=== PATIENT | female | born 1990 | race Caucasian/White ===

== ENCOUNTER 2021-04-28 09:03 | Outpatient (REF) | payer BC, SELFPAY ==
--- NOTE | ~2021-04-28 | XR_ITS ---
EXAMINATION: XR CHEST CLINICAL INFORMATION: Shortness of breath COMPARISON: None TECHNIQUE: 2 views of the chest were obtained. FINDINGS: No significant abnormality is noted involving the heart, lungs, mediastinum, bony thorax or soft tissues. XR/XR chest 2V IMPRESSION: Unremarkable chest examination.
[2021-04-28 11:39] LABS: Anion Gap 12 (12-20); Blood Urea Nitrogen 5 mg/dL (9-16); Calcium 9.7 mg/dL (8.4-10.2); Carbon Dioxide 27 mmol/L (22-29); Chloride 104 mmol/L (96-108); D Dimer High Sensitivity 167 NG/ML; Estimated Glomerular Filt Rate > 60; Glucose Random 119 mg/dL (60-115); Potassium 3.8 mmol/L (3.3-5.1); Sodium 139 mmol/L (135-145)
== END 2021-04-28 09:04 | disposition home or self-care (01) ==
LOC: HO.HMGCLDS 09:03
PROVIDERS: PCP Nurse Practitioner Family; Visit Provider Nurse Practitioner Family
DX: R06.02 Shortness of breath (principal); U09.9 Post COVID-19 condition, unspecified
CPT/HCPCS: 36415; 71046; 80048; 85379

== ENCOUNTER 2022-03-05 08:03 | Outpatient (REF) | payer BC, SELFPAY ==
[2022-03-05 11:52] LABS: Syphilis Screen Nonreactive (Nonreactive)
[2022-03-05 12:12] LABS: Alanine Aminotransferase 18 U/L (0-31); Albumin Level 4.4 g/dL (3.5-5.0); Alkaline Phosphatase 50 U/L (39-117); Anion Gap 13 (12-20); Aspartate Amino Transferase 15 U/L (5-31); Blood Urea Nitrogen 14 mg/dL (9-16); Calcium 9.2 mg/dL (8.4-10.2); Carbon Dioxide 24 mmol/L (22-29); Chloride 108 mmol/L (96-108); Cholesterol 174 mg/dL; Estimated Glomerular Filt Rate > 60; Glucose Fasting 101 mg/dL (60-99); HDL Cholesterol 42 mg/dL; LDL Cholesterol Calculated 117 mg/dl; Potassium 4.5 mmol/L (3.3-5.1); Sodium 140 mmol/L (135-145); TSH reflex Free T4 2.01 uIU/mL (0.32-4.0); Total Protein 6.6 g/dL (6.5-8.0); Triglycerides 76 mg/dL
[2022-03-05 14:07] LABS: Appearance Urine Turbid; Color Urine Yellow; Glucose Urine UA Negative (Negative); Leukocyte Esterase Urine Trace (Negative); Nitrite Urine Negative (Negative); Specific Gravity - Urine 1.025 (1.005-1.025); UMIC TRIGGER UACC YES; Urine Blood Large (3+) (Negative); Urine Ketones 40 mg/dL (Negative); Urine Protein Negative (Neg-Trace)
[2022-03-05 14:12] LABS: Bacteria Urine None Seen (None Seen); Hyaline Casts Urine 0-2 /LPF (0-2); RBC Urine >20 /HPF (0-2); Squamous Epithelial Cell Urine 0-2 /HPF (0-2); WBC Urine 0-5 /HPF (0-5)
[2022-03-06 09:08] LABS: HIV AB/AG Nonreactive (Nonreactive); Hepatitis B Surface Antigen Negative (Negative); ~HepC Num1 0.05 S/CO (0.00-0.79); ~Hepatitis C Antibody Nonreactive (Nonreactive)
== END 2022-03-05 08:04 | disposition home or self-care (01) ==
LOC: HO.HMGCLDS 08:03
PROVIDERS: Absent Provider Obstetrics & Gynecology; PCP Nurse Practitioner Family; Visit Provider Nurse Practitioner Family
DX: Z00.00 Encounter for general adult medical examination without abnormal findings (principal); Z11.3 Encounter for screening for infections with a predominantly sexual mode of transmission; Z11.4 Encounter for screening for human immunodeficiency virus [HIV]
CPT/HCPCS: 36415; 80053; 80061; 81001; 81003; 84443; 86780; 86803; 87340; 87389

== ENCOUNTER → 2022-05-15 08:00 | Outpatient (REF) | payer BC, SELFPAY ==
--- NOTE | 2022-05-15 08:02 | CA_ITS ---
Transthoracic Echocardiogram Patient (Last, First, Middle): Nery Hernandez, Gender: Female Date of : 1990 Age: 31 Procedure Date: 05/15/2022 Procedure Type: Transthoracic Echocardiogram Location: OP Height: 167.64 cm Weight: 108.86 kg BSA: 2.16 m2 Heart Rate: 65 bpm BP: 122 / 70 mmHg Quartz Orientator: SB Referring MD: Elvis Addison [facility] Hearing Examiner: Saw Combs MD Symptoms: R01.1 - Cardiac murmur, unspecified Study Quality: Adequate ECG Rhythm: Sinus Conclusions: - Essentially normal study Findings Left Ventricle Normal left ventricular size, thickness, and systolic function. The visually estimated ejection fraction is between 60-65%. Spectral Doppler is indicative of a normal filling pattern. Peak GLS is 17.6%, within normal limits Right Ventricle Normal right ventricular cavity size and systolic function. Atria Both atria are normal in size. There is no evidence of interatrial shunt. Aortic Valve Normal aortic valve structure and function. There is no aortic valve stenosis. There is no aortic valve regurgitation. Mitral Valve There is mild anterior and posterior mitral leaflet thickening. There is trace mitral valve regurgitation. There is no mitral valve stenosis. Pulmonic Valve The pulmonic valve is likely normal. Tricuspid Valve Normal tricuspid valve structure. There is trace tricuspid valve regurgitation. The right ventricular systolic pressure is normal. The right ventricular systolic pressure is 21 mmHg. Normal right atrial pressure. There is no evidence of pulmonary hypertension. Great Vessels All visible segments of the aorta are normal in size. The pulmonary artery was not well visualized. Venous The inferior vena cava is normal in size and collapses greater than 50% with inspiration. Pericardium/Pleural There is no evidence of pericardial effusion. Prior Study Comparison No prior study available for comparison. Measurements 2D Linear Measurements IVSd: 0.72 0.6-0.9/0.6-1.0 cm LVIDd: 4.07 3.9-5.3/4.2-5.9 cm LVIDd Index: 1.88 2.4-3.2/2.2-3.1 cm/m2 LVIDs: 3.01 2.0-3.6 cm LVPWd: 0.77 0.7-1.1 cm LA Diam: 3.30 2.7-3.8/3.0-4.0 cm LAIDs Index: 1.53 1.5-2.3 cm/m2 LV Mass: 108.35 67-162/88-224 g LV Mass Index: 50.16 43-95/49-115 g/m2 LVOT Diam: 2.00 3.0+(-)1.3 cm 2D Systolic Function EF 4C: 62.10 >55% EF 2C: 58.90 >55% EF BiP: 59.80 >55% Mitral Valve MV Pk E: 0.89 MV PK A: 0.51 MV Decel Time: 154.00 E/A: 1.70 E'Lateral: 14.30 E'Medial: 11.00 E/E' Med: 8.10 E/E' Lat: 6.20 PHT: 45.00 MVA PHT: 4.89 Decel [place]: 5.77 Aortic Valve AoV Pk Juanjose: 1.39 AoV Pk Grad: 8.00 TESSA: 2.59 LVOT LVOT Pk Juanjose: 1.10 LVOT Mn Juanjose: 0.79 LVOT VTI: 0.23 LVOT Pk Grad: 5.00 LVOT Mn Grad: 3.00 LVOT Diam: 2.00 LVOT Area: 3.14 Diastolic Function MV Pk E: 0.89 MV Pk A: 0.51 E/A: 1.70 E'Medial: 11.00 E/E' Med: 8.10 E' Laterial: 14.30 E/E' Lat: 6.20 Right Ventricle TAPSE (mm): 17.10 TVS' Juanjose: 9.88 Tricuspid Valve TR Pk Juanjose: 1.83 TR Pk Grad: 13.00 RA Press: 8.00 RVSP: 21.00 Great Vessels Aorta Sinus of Valsalva: 2.90 2.0-3.5 cm Ao Asc: 2.90 2.1-3.4 cm Pulmonary Valve PV Pk Juanjose: 1.28 Peak PV Grad: 7.00 Updated in Other Vendor System with Status of Final Saw Combs MD electronically signed on 05/15/2022 2:35:53 PM with status of Final
== END ==
LOC: HO.CARD 08:00
PROVIDERS: Visit Provider Nurse Practitioner Family
DX: R01.1 Cardiac murmur, unspecified (principal)
CPT/HCPCS: 93306; 93356

== ENCOUNTER 2023-08-16 15:52 | Outpatient (AMB) | payer BC, SELFPAY ==
--- NOTE | 2023-08-16 16:05 | A.OFFPC_ITS ---
Vital Signs 08/16/23 16:08 Height 5 ft 6 in Weight 238 lb BMI 38.4 BP 120/80 Blood Pressure Location Rt brachial Position Sitting Pulse 58 Pulse Source Pulse Oximeter Pulse Oximetry (%) 98 Oxygen Delivery Method Room Air Intake Visit Reasons: PE Intake Note: Patient here for physical exam. last Pap: 2022 due back in 3 years. Allergies Sulfa (Sulfonamide Antibiotics) Allergy (Unknown, Verified 08/16/23 16:09) hives amoxicillin Adverse Reaction (Unknown, Verified 08/16/23 16:09) unknown Sulfa Allergy (Unknown, Uncoded 08/16/23 16:09) hives Medication List - Last Reconciled 08/16/23 by SANYA Raza No Known Home Meds Tobacco use date assessed: 08/16/23 Dental Screening Dental Screen Date: 08/16/23 Did you have a dental visit in the last 12 months?: Yes Did you have a dental problem in the last 6 months where you did not have access to dental care?: No Was dental information given to patient?: Patient has dentist HPI PE HPI Details Pt is here for a PE. Will order labs. Has a siebel administrator. [facility] Social History Housing: Apartment Patient Tobacco Use Status: Never used Tobacco e-Cigarette/Vaping Use: Never Used Second Hand Smoke Exposure: No service: No Current occupational status: employed Current occupation: MEDICAL DEVICE ENGINEER in Addiction Medicine Current occupational exposures/hazards: No Cognitive needs: No Hearing needs: No Vision needs: No Questionnaire Thrive Questionnaire Date Thrive assessed: 08/12/22 AUDIT C Alcohol Use Questionnaire (AUDIT-C) 1. How often do you have a drink containing alcohol?: 2-4 times a month 2. How many drinks containing alcohol do you have on a typical day when you are drinking?: 1 or 2 3. How often do you have six or more drinks on one occasion?: Never Total Score: 2 Score Reviewed/Action Taken: No SLOANE-7 AMB Questionnaire SLOANE-7 Date SLOANE - 7 assessed: 08/12/22 Source: Developed by Drs. Lang Arias, Mayra Palma, Clark Kerr and colleagues, with an educational mando from [employer]. Review of Systems Const Denies chills and Denies fever(s) Eyes Denies blurry vision ENT Denies vertigo, Denies dizziness and Denies sore throat Card Denies chest pain at rest, Denies chest pain with activity, Denies diaphoresis, Denies dyspnea and Denies dyspnea on exertion Resp Denies cough, Denies dyspnea, Denies dyspnea on exertion and Denies wheezing GI Denies abdominal pain, Denies melena, Denies hematochezia, Denies constipation, Denies diarrhea and Denies loose stools Denies hematuria Musc Denies numbness and Denies tingling Skin/Breast Denies lesions Neuro Denies vertigo, Denies dizziness, Denies numbness and Denies tingling Psych Denies anxiety, Denies depression, Denies homicidal ideation, Denies suicidal ideation and Denies other (substance abuse) Aller/Immun Denies wheezing Physical exam (Primary Care) Vital Signs: Last Vital Signs Pulse 58 08/16/23 16:08 BP 120/80 08/16/23 16:08 Pulse Ox 98 08/16/23 16:08 Oxygen Delivery Method Room Air 08/16/23 16:08 BMI result Body Mass Index 38.4 Tobacco/Smoking Status: Tobacco use Status Tobacco use date assessed 08/16/23 08/16/23 16:12 Patient Tobacco Use Status Never used Tobacco 08/16/23 16:06 e-Cigarette/Vaping Use Never Used 08/16/23 16:06 Thrive Assessment: Date of Thrive Assessment Date Thrive assessed 08/12/22 08/16/23 16:06 Const General: cooperative Nutritional Appearance: obese Orientation/consciousness: patient oriented x3 HENMT Head: Yes normal to inspection, Yes normocephalic and Yes atraumatic Ears: TM's normal bilaterally Eyes General: appearance normal, both eyes and all related structures Alignment and Position: alignment normal and position normal Neck Neck: Yes normal visual inspection and Yes no lymphadenopathy Thyroid: Thyroid normal Resp Effort & Inspection: normal respiratory effort Auscultation: clear to auscultation bilaterally Cardio Rate: regular rate Rhythm: regular rhythm Heart sounds: S1 normal heart sound present, S2 normal heart sound present and Murmur heart sound present systolic GI Palpation (GI): Soft to palpation and nontender Auscultation: normal bowel sounds Skin Rashes: no rashes Neuro General: patient oriented x3, moves all extremities, no focal motor deficits and deep tendon reflexes 2+ bilaterally Romberg Test: Negative Psych Appearance: grossly normal Mental Status: mental status grossly normal Speech and movement: Normal speech and movement present Affect: normal affect Attitude: cooperative Thought process: Normal thought process present Thought content: Normal thought content present Insight: Good insight present (Psych) Judgement: Good judgement present (Psych) Assessment and Plan Assessment & Plan (1) Physical exam: Code(s): Z00.00 - Encounter for general adult medical examination without abnormal findings Plan: Labs ordered Plan The patient agreed to the use of a medical collections specialist for this encounter. Scribed for SANYA Garduno by Lainey Whitehead medical collections specialist, on 08/16/2023 at 16:15 EST. Orders: Orders Comprehensive [place]. Panel Fast Today Z00.00 - Encounter for general adult medical examination without abnormal findings TSH reflex Free T4 Today Z00.00 - Encounter for general adult medical ex amination without abnormal findings Complete Blood Count Auto Diff Today Z00.00 - Encounter for general adult medical examination without abnormal findings UA CC w/rflx Micro + Cult Today Z00.00 - Encounter for general adult medical examination without abnormal findings Lipid Panel Today Z00.00 - Encounter for general adult medical examination without abnormal findings Coding Level of Care Code Est Pt Prev Care 18-39y([id number]) Diagnoses Physical exam Z00.00
[2023-08-16 16:08] VITALS: BP 120/80; PULSE 58; O2SAT 98; BMI 38.4
== END 2023-08-16 16:25 | disposition home or self-care (01) ==
LOC: HO.HMGC 15:52
PROVIDERS: PCP Nurse Practitioner Family; Visit Provider Nurse Practitioner Family
DX: Z00.00 Encounter for general adult medical examination without abnormal findings (principal)
CPT/HCPCS: 99395

== ENCOUNTER 2024-11-01 15:33 | Outpatient (AMB) | payer OTHER, SELFPAY ==
--- OUTSIDE RECORDS SUMMARY | 2023-07-30 07:00 | XMS_ITS ---
Author Organization [facility] [address] Address [address] [place] [address] Care Team Providers Care Batter Mixer Name Role Phone EDDIE CRAIG Unavailable CHAD TERRY Unavailable [phone] Encounters Encounter Location Date Provider Diagnosis [facility] [address] [place] [address] 07/30/2023 CHAD TERRY Plan Of Treatment No Information Progress Notes * Christelle HERNANDEZOB:1990 (34 yo F)Acc No.[id number]:07/30/2023 Patient: Carmela CASEY Nery Provider: Samuel CALI PA-C :1990 A ge:33 Y S ex:Female Date:07/30/2023 Address:[address] [place], [place] [id number] Subjective: * Chief Complaints: * * Medical History: Objective: * Vitals: Assessment: Plan: * Treatment: * Images: Billing Information: * Visit Code: * Procedure Codes: * Electronic signature of CHARLENE TERRY PA-C on 11/01/2024 at 03:37 PM EDT Sign off status: Pending * Provider: Samuel CALI PA-C Date: 07/30/2023 Generated for Abiola rosales/Ita/eTransmitting on: 0 11/01/2024 03:37 PM EDT
--- OUTSIDE RECORDS SUMMARY | 2024-11-01 15:37 | XMS_ITS | Clinical Summary ---
Author Organization [facility] Address [address] [place] [address] Care Team Providers Care Electrical Equipment Technician Name Role Phone System, Provider Not In Primary Care Provider Un available Allergies Active Allergy Reactions Criticality Noted Date Comments Sulfa Antibiotics Hives Medium 02/19/2017 Social History Tobacco Use Types Packs/Day Years Used Date Smoking Tobacco: Never Assessed Comments Unknown Sex and Gender Information Value Date Recorded Sex Assigned at Not on file Legal Sex Female 4:13 PM EDT Gender Identity Not on file Sexual Orientation Not on file Plan of Treatment Health Maintenance Due Date Last Done Comments Hepatitis C Virus Screening 1990 HIV Screening 2001 DTaP/Tdap/Td Vaccines (1 - Tdap) 07/09/2007 Hepatitis B Vaccines (1 of 3 - 19+ 3-dose series) 07/09/2007 Pap Smear (Ages 21-65) 2009 COVID-19 Vaccine ( - 2023-2 5 season) 2023 Influenza Vaccine 11/24/2024 HPV Vaccines Aged Out No longer eligi ble based on patient's age to complete this topic Pneumococcal Vaccine: Pediat blake (0-5 Years) and At-Risk Patients (6 to 49 Years) Aged Out No longer eligible b ased on patient's age to complete this topic Insurance [facility] [employer] [place] [address] Care Teams Electrical Equipment Technician Relationship Specialty Start Date End Date System, Provider Not In PCP - General 02/18/17
--- OUTSIDE RECORDS SUMMARY | 2024-11-01 15:38 | XMS_ITS | Encounter Summary ---
Author Organization [facility] Address [address] [place] [address] Phone Care Team Providers Care Barrer And Tacker Name Role Phone Chrystal Scott DO Primary Care Provider [phone] Encounter Details Date Type Department Care Team (Late st Contact Info) Description 12/10/2016 Conversion Encounter [facility] [place] [address] [place] [address] Social History Tobacco Use Types Packs/Day Years Used Date Smoking Tobacco: Never Assessed Comments Unknown Sex and Gender Information Value Date Recorded Sex Assigned at Not on file Legal Sex Female 4:38 PM EDT Gender Identity Not on file Sexual Orientation Not on file documented as of this encounter Plan of Treatment Not on file documented as of this encounter Visit Diagnoses Not on filedocumented in this encounter Care Teams Barrer And Tacker Relationship Specialty Start Date End Date Chrystal Scott DO [address] [place] [address] PCP - General 12/04/16 10/27/22 documented as of this encounter
--- OUTSIDE RECORDS SUMMARY | 2024-11-01 15:38 | XMS_ITS | Patient Health Record ---
Author Organization [facility] Address [address] [place] [address] Care Team Providers Care Marketing Rotation Associate Name Role Phone Elvis Castro Primary Care Provider Unav Raine Gifford Unavailable [phone] Allergies Allergen (clinical drug ingredient) Drug/Non Drug Allergy documented on EMR Reaction Allergy Type Onset Date Status Substance with sulfonamide structure and antibacterial mechanism of action (substance) Sulfa Antibiotics rash/hives Drug Allergy Active Reason For Referral No Information Social History Tobacco Use: Social History Observation Description Date Details (start date - stop date) Never Smoker NA - NA Tobacco Use/Smoking Question Answer Notes Are you a: nonsmoker Additional Findings: Tobacco Non-User Current no n-smoker Alcohol Screen Question Answer Notes Did you have a drink containing alcohol in the p ast year? Yes Points 0 Interpretation Negative Tobacco use other than smoking: Question Answer Notes Are you an other tobacco user? No Plan Of Treatment No Information Insurance Providers Payer Name Payer Address Payer Phone Subscriber Number Group Number Insured Name Patient Relationship to Insured Coverage Start Date Coverage End Date [facility] [address] [place] [address] [id number] Nery Hernandez Self - patient is the insured Medical (General) History Medical History History ICD Code TMJ Obesity Surgical History Surgery Date(Month/Year)
[2024-11-01 15:40] VITALS: BP 114/78; PULSE 89; RESP 16; TEMP 36.8; O2SAT 99; BMI 43.3
--- NOTE | 2024-11-01 15:40 | A.OFFPC_ITS ---
Vital Signs 11/01/24 15:40 Height 5 ft 6 in Weight 268 lb BMI 43.3 BP 114/78 Blood Pressure Location Lt brachial Position Sitting Respiration 16 Pulse 89 Pulse Source Pulse Oximeter Temp 98.3 F Temp Source Oral Pulse Oximetry (%) 99 Oxygen Delivery Method Room Air Intake Visit Reasons: Annual PE Intake Note: pt is here for her PE Felt Hanger Required: No Allergies Sulfa (Sulfonamide Antibiotics) Allergy (Unknown, Verified 11/01/24 16:13) hives amoxicillin Adverse Reaction (Unknown, Verified 11/01/24 16:13) unknown Sulfa Allergy (Unknown, Uncoded 11/01/24 16:13) hives Medication List - Last Reconciled 11/01/24 by DAVID Raza-DHARMESH rivero.vits,terese,iou-zvcc-zllui tabs PO Tobacco use date assessed: 11/01/24 Dental Screening Dental Screen Date: 11/01/24 Did you have a dental visit in the last 12 months?: Yes Did you have a dental problem in the last 6 months where you did not have access to dental care?: No Was dental information given to patient?: Patient has dentist HPI Annual PE HPI Details History of Present Illness The patient is a 34-year-old female presenting for a physical examination following childbirth. She recently gave to twins in August, with one delivered vaginally and the other via emergency due to complications. The twins were premature and required a stay in the NICU, but they are now home and doing well. The patient is currently and has been advised by her supervisor carton and can supply to see a therapist due to the trauma associated with the childbirthing experience she had. She reports that she is still seeing a therapist and is doing quite well, denying any suicidal ideation or homicidal thoughts. The patient denies any chest pain, shortness of breath, abdominal pain, blood in stool, constipation, or diarrhea. Her supervisor carton and can supply has recommended that she remain out of work until December, which is agreed upon. The patient is morbidly obese, and there was a discussion about starting a GLP-1 agonist after she finishes . She denies any history of pancreatitis or thyroid issues. Health Maintenance Social History Review of Systems - Psychiatric: Denies suicidal ideation or homicidal thoughts. - Cardiovascular: Denies chest pain. - Respiratory: Denies shortness of breat h. - Gastrointestinal: Denies abdominal cindy n, blood in stool, constipation, or diarrhea. Physical Exam General: Cooperative, healthy appearing, comfortable, no acute distress and well developed, morbidly obese Orientation: Patient oriented x3 Limitations: No limitations Head: Normal to inspection Ears: Hearing grossly normal bilaterally Nose: Normal external nose present Face and sinus: Normal facial exam Eyes: Appearance normal, both eyes and all related structures Neck: Normal visual inspection and Yes full ROM Respiratory: Normal respiratory effort and able to speak in complete sentences. Clear to auscultation bilaterally Cardiovascular: Regular rate and rhythm. Normal S1 and S2 GI: Normal to inspection. Soft to palpation and nontender Skin: No rashes or lesions noted Neuro: Patient oriented x3 Extremities: Normal to inspection Results Plan The patient will continue to see her therapist to address the trauma associated with her childbirth experience, as recommended by her supervisor carton and can supply. She will remain out of work until December, as agreed upon with her supervisor carton and can supply, to allow for adequate recovery time. A discussion was held regarding the initiation of a GLP-1 agonist for weight management, which will be considered after the patient completes . Routine lab work will be conducted as part of her physical examination to monitor her health status. Discussion Notes I discussed with the patient the importance of continuing therapy to address the trauma from her childbirth experience, as well as the plan to remain out of work until December for recovery. We also talked about the potential use of a GLP-1 agonist for weight management after , and I explained the need for routine lab work as part of her physical examination. Patient Instructions - Continue therapy sessions as recommend ed by your supervisor carton and can supply. - Stay out of work until December to [facility] for recovery. - Consider starting GLP-1 agonist for we ight management after . - Complete routine lab work as part of y our physical exam. 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 1. Little interest or pleasure in doing things: several days 2. Feeling down, depressed, or hopeless: several days 3. Trouble falling or staying asleep, or sleeping too much: several days 4. Feeling tired or having little energy: several days 5. Poor appetite or overeating: several days 6. Feeling bad about yourself - or that you are a failure or have let yourself or your family down: several days 7. Trouble concentrating on things, such as reading the newspaper or watching television: several days 8. Moving or speaking so slowly that other people could have noticed. Or the opposite - being so fidgety or restless that you have been moving around a lot more than usual: not at all 9. Thoughts that you would be better off or of hurting yourself in some way: not at all Total score: 7 Depression Screening Interpretation: Negative (pt has a therapist, denies any si or hi) Depression Screening Done: Yes 40308 - PHQ-9 Billing: Yes Source: Developed by Drs. Lang Arias, Mayra Palma, Clark Kerr and colleagues, with an educational mando from [employer]. Thrive Questionnaire Date Thrive assessed: 11/01/24 I am a: Patient What is your living situation today?: I have a steady place to live Within the past 12 months, did the food you bought not last and you didn't have the money to get more?: Never true Within the past 12 months, did you worry whether your food would run out before you got money to buy more?: Never true Do you have trouble paying for medicines?: No Do you have trouble getting transportation to medical appointments?: No Do you have trouble paying your heating and electricity bill?: No Do you have trouble taking care of your child, family member or friend?: No Do you have trouble with day-to-day activities such as bathing, preparing meals, shopping, managing finances, etc.?: No Are you currently unemployed and looking for a job?: No Are you interested in more education?: No Please select the resources that you would like help with: None Currently or been in a relationship where the following occur: No concerns reported THRIVE Score: 0 AUDIT C Alcohol Use Questionnaire (AUDIT-C) 1. How often do you have a drink containing alcohol?: Monthly or less 2. How many drinks containing alcohol do you have on a typical day when you are drinking?: 1 or 2 3. How often do you have six or more drinks on one occasion?: Never Total Score: 1 Score Reviewed/Action Taken: Yes SLOANE-7 AMB Questionnaire SLOANE-7 Date SLOANE - 7 assessed: 11/01/24 Feeling nervous, anxious, or on edge: 1 = Several days Not being able to stop or control worryin = Several days Worrying too much about different things: 1 = Several days Trouble relaxin = Several days Being so restless that it is hard to sit still: 0 = Not at all Becoming easily annoyed or irritable: 1 = Several days Feeling afraid as if something awful might happen: 0 = Not at all Total SLOANE-7 score (0-4 normal; 5-9 mild; 10-14 moderate; 15-21 severe): 5 Source: Developed by Drs. Lang Arias, Mayra Palma, Clark Kerr and colleagues, with an educational mando from [employer]. SLOANE-7 Assessment Billing SLOANE-7 Assessment Tool: SLOANE-7 Assessment 95741 Physical exam (Primary Care) Vital Signs: Last Vital Signs Temp 98.3 F 11/01/24 15:40 Pulse 89 11/01/24 15:40 Resp 16 11/01/24 15:40 BP 114/78 11/01/24 15:40 Pulse Ox 99 11/01/24 15:40 Oxygen Delivery Method Room Air 11/01/24 15:40 BMI result Body Mass Index 43.3 Tobacco/Smoking Status: Tobacco use Status Tobacco use date assessed 11/01/24 11/01/24 15:52 Patient Tobacco Use Status Never used Tobacco 11/01/24 15:52 e-Cigarette/Vaping Use Never Used 11/01/24 15:52 PHQ-9: PHQ-9 Score PHQ-9: Total score 7 11/01/24 15:52 Depression Screening Interpretation: Negative (pt has a therapist, denies any si or hi) Thrive Assessment: Date of Thrive Assessment Date Thrive assessed 11/01/24 11/01/24 15:52 Currently or been in a relationship where the following occur: No concerns reported Coding Level of Care Code Est Pt Prev Care 18-39y(23986) Diagnoses Physical exam Z00.00 Vitamin D deficiency E55.9 Additional Codes SLOANE-7 Assessment Billing - SLOANE-7 Assessment Tool: SLOANE-7 Assessment 58841 ([id number]) PHQ-9 - 03109 - PHQ-9 Billing: Yes ([id number]) Assessment & Plan Assessment & Plan (1) Physical exam: Code(s): Z00.00 - Encounter for general adult medical examination without abnormal findings Category: Medical (2) Vitamin D deficiency: Code(s): E55.9 - Vitamin D deficiency, unspecified Category: Medical Plan . Orders: Orders Complete Blood Count Auto Diff Today Z00.00 - Encounter for general adult medical examination without abnormal findings Comprehensive [place]. Panel Fast Today Z00.00 - Encounter for general adult medical examination without abnormal findings Vitamin D 25-OH Total Today E55.9 - Vitamin D deficiency, unspecified TSH reflex Free T4 Today Z00.00 - Encounter for general adult medical examination without abnormal findings UA CC w/rflx Micro + Cult Today Z00.00 - Encounter for general adult medical examination without abnormal findings Lipid Panel Today Z00.00 - Encounter for general adult medical examination without abnormal findings
== END 2024-11-01 16:23 | disposition home or self-care (01) ==
LOC: HO.HMCC 15:34
PROVIDERS: PCP Nurse Practitioner Family; Visit Provider Nurse Practitioner Family
DX: Z00.00 Encounter for general adult medical examination without abnormal findings (principal); E55.9 Vitamin D deficiency, unspecified

== ENCOUNTER → 2024-11-01 15:33 | Outpatient (BNVA) | payer OTHER, SELFPAY | PROVIDERS: PCP Nurse Practitioner Family; Visit Provider Nurse Practitioner Family | DX: Z00.00 Encounter for general adult medical examination without abnormal findings (principal); E66.01 Morbid (severe) obesity due to excess calories; E55.9 Vitamin D deficiency, unspecified; Z68.41 Body mass index [BMI] 40.0-44.9, adult | CPT/HCPCS: 96127 ==

== ENCOUNTER 2024-12-28 07:51 | Outpatient (REF) | payer OTHER, SELFPAY ==
--- OUTSIDE RECORDS SUMMARY | 2023-07-30 07:00 | XMS_ITS ---
Author Organization [facility] [address] Address [address] [place] [address] Care Team Providers Care Decorative Cutting Machine Tender Name Role Phone EDDIE CRAIG Unavailable CHAD TERRY Unavailable [phone] Encounters Encounter Location Date Provider Diagnosis [facility] [address] [place] [address] 07/30/2023 CHAD TERRY Plan Of Treatment No Information Progress Notes * Christelle HERNANDEZOB:1990 (34 yo F)Acc No.[id number]:07/30/2023 Patient: Carmela CASEY Nery Provider: Samuel CALI PA-C :1990 A ge:33 Y S ex:Female Date:07/30/2023 Address:[address] [place], [place] [id number] Subjective: * Chief Complaints: * * Medical History: Objective: * Vitals: Assessment: Plan: * Treatment: * Images: Billing Information: * Visit Code: * Procedure Codes: * Electronic signature of CHARLENE TERRY PA-C on 12/28/2024 at 07:54 AM EDT Sign off status: Pending * Provider: Samuel CALI PA-C Date: 07/30/2023 Generated for Abiola rosales/Ita/eTransmitting on: 0 12/28/2024 07:54 AM EDT
--- OUTSIDE RECORDS SUMMARY | 2024-12-28 07:55 | XMS_ITS | Patient Health Record ---
Author Organization [facility] Address [address] [place] [address] Care Team Providers Care Food Preparation Kitchen Aide Name Role Phone CAROLINA DAVIDEDDIE Unavailable [phone] Allergies Allergen (clinical drug ingredient) Drug/Non Drug Allergy documented on EMR Reaction Allergy Type Onset Date Status sulfamethoxazole / trimethoprim Bactrim hives Drug Allergy Active Reason For Referral No Information Medications Medication SIG (Take, Route, Fr equency, Duration) Notes Start Date End Date Status Cortisol Furnishings Conservator Act charles Phentermine HCl 15 MG 1 capsule Orally t wice a day; Duration: 30 days 07/20/2023 Active Multi Vitamin - 1 tablet Orally Once a day 023 Active Social History Tobacco Use: Social History Observation Description Date Details (start date - stop date) Never Smoker NA - NA Tobacco Use/Smoking Question Answer Notes Are you a nonsmoker Section Notes: family nurse practitioner family nurse practitioner family nurse practitioner Problems Problem Type SNOMED Code ICD Code Onset Dates Problem Status W/U Status Risk Notes Problem Obesity (626953197) Obesity (BMI 30-39.9) (E66.9) Active confirmed Problem Obese class II ([id number]) BMI 36.0-36.9,adult (Z68.36) Active confirmed Problem Screening for cardiovascular system disease (180443300) Screening for cardiovascular condition (Z13.6) Active confirmed Plan Of Treatment No Information Insurance Providers Payer Name Payer Address Payer Phone Subscriber Number Group Number Insured Name Patient Relationship to Insured Coverage Start Date Coverage End Date [facility] [address] [place] [address] [id number] Nery Hernandez Self - patient is the insured Medical (General) History Medical History History ICD Code weight gain/loss
--- OUTSIDE RECORDS SUMMARY | 2024-12-28 07:55 | XMS_ITS | Encounter Summary ---
Author Organization [facility] Address [address] [place] [address] Phone Care Team Providers Care Manager Spanish Name Role Phone Chrystal Scott DO Primary Care Provider [phone] Encounter Details Date Type Department Care Team (Late st Contact Info) Description 12/10/2016 Conversion Encounter [facility] [address] [place] [address] Social History Tobacco Use Types Packs/Day Years [...] on filedocumented in this encounter Care Teams Manager Spanish Relationship Specialty Start Date End Date Chrystal Scott DO [address] [place] [address] PCP - General 12/04/16 10/27/22 documented as of this encounter
--- OUTSIDE RECORDS SUMMARY | 2024-12-28 07:55 | XMS_ITS | Patient Health Record ---
[facility] Address [address] [facility] [place] [address] Care Team Providers Care Solid Propellant Processor Name Role Phone Elvis Castro Primary Care Provider Unav ailable Raine Tolbert Unavailable [phone] Christine Murray Unavailable [phone] Allergies Allergen (clinical drug ingredient) Drug/Non Drug Allergy documented on EMR Reaction Allergy Type Onset Date Status Substance with sulfonamide structure and antibacterial mechanism of action (substance) Sulfa Antibiotics rash/hives Drug Allergy Active Reason For Referral No Information Medications Medication SIG (Take, Route, Frequency, Duration) Notes Start Date End Date Status Active Immunizations Vaccine Route Administration Date Status Comme nts Influenza Unknown 02/25/2024 Administered Social History Tobacco Use: Social History Observation [...] Are you an other tobacco user? No AUDIT-C (Standard) Question Answer Notes Did you have a drink containing alcohol in the p ast year? No Points 0 Interpretation Negative Vital Signs Blood pressure diastolic 80 mm Hg 12/13/2024 Height 5ft6in in 12/13/2024 Blood pressure systolic 123 mm Hg 12/13/2024 Weight 235 lbs 12/13/2024 BMI 37.93 kg/m2 12/13/2024 Procedures Procedure Date Ordered Date Performed Result Body Sit e 10413-Ooodkncx Plate 12/13/2024 N/A Encounters Encounter Location Date Provider Diagnosis [facility] [address] [address] 12/13/2024 Christine Murray Ingrown nail L60.[address] [facility] [address] 12/13/2024 Christine Terri Assessments Encounter Date Diagnosis (ICD Code) Assessment Notes Treatment Notes Treatment Clinical Notes Section Notes 12/13/2024 Ingrown nail (ICD-10 - L60.0) Plan Of Treatment Pending Test Test Name Order Date 62729-Lsxbtqbv Plate 12/13/2024 Insurance Providers Payer Name Payer Address Payer Phone Subscriber Number Group Number Insured Name Patient Relationship to Insured Coverage Start Date Coverage End Date B[employer] Benefits [address] [id number] Nery Hernandez Self - patient is the insured Medical (General) History Medical History History ICD Code TMJ Obesity Surgical History Surgery Date(Month/Year) 08/11/24
--- OUTSIDE RECORDS SUMMARY | 2024-12-28 07:55 | XMS_ITS | Clinical Summary ---
Author Organization [facility] Address [address] [place] [address] Care Team Providers Care Spotlight Operator Name Role Phone System, Provider Not In [...] series) 07/09/2007 Pap Smear (Ages 21-65) 2009 HPV Vaccines (1 - 3-dose SCD M series) 07/09/2015 COVID-19 Vaccine ( - 2023-2 5 season) 2023 Influenza Vaccine 11/24/2024 Pneumococcal Vaccine: Pediat blake (0-5 Years) and At-Risk Patients (6 to 49 Years) Aged Out No longer eligible b ased on patient's age to complete this topic Insurance [employer] Care Teams Spotlight Operator Relationship Specialty Start Date End Date System, Provider Not In PCP - General 02/18/17
--- OUTSIDE RECORDS SUMMARY | 2024-12-28 07:56 | XMS_ITS | Clinical Summary ---
Author Organization [facility] Address [address] [place] [address] Phone Care Team Providers Care Industrial Arts Teacher Name Role Phone Unavailable Primary Care Provider Unavailabl e Immunizations Immunization Administration Dates Next Due DTP 07/13/1993, 0,01/05/1989,11/04,1988 HPV, Quadrivalent 09/01/2007,03/03/2007,11/20/19 07 Hep B, ped/adol 03/16/2000,10/29/1999,09/04/1999 Hib (PRP-T) 08/23/1990 MMR 09/04/1999,10/12/1989 Meningococcal Conj (Menactra) MCV4P 11/19/2006 OPV 07/13/1993, 0,1988,09/08 Td (adult) (MBL), 2 Lf tetan us toxoid, PF, adsorbed 09/04/1999 Tdap 12/20/2009 Varicella 12/29/2007,10/22/1997 Family History Relation Name Status Comments Brother 1 Alive Brother: Alive and well, Alive and well Brother 2 Alive Brother: Alive and well, Alive and well Father Alive Father: Alive a nd well Maternal Grandfather Materna l grandfather: HTN/hyperlipidemia Maternal Grandmother Materna l grandmother: Cancer, breast, Mother Alive Mother: Alive a nd well Paternal Grandfather Paterna l grandfather: diabetes/cardiac, Social History Tobacco Use Types Packs/Day Years Used Date Smoking Tobacco: Never Assessed Comments Unknown Sex and Gender Information Value Date Recorded Sex Assigned at Not on file Legal Sex Female 4:38 PM EDT Gender Identity Not on file Sexual Orientation Not on file Plan of Treatment Health Maintenance Due Date Last Done Comments DTaP,Tdap,and Td Vaccines (7 - Td or Tdap) 12/21/2019 12/20/2009, 09/04/1999, 07/13/1993, Additional history exists Influenza Vaccines (#1) 2024 COVID-19 Vaccine ( season) 2024 HIB Vaccines Completed 08/23/1990 IPV Vaccines Completed 07/13/1993, 02/25, 1988, Additional history exists MMR Vaccines Completed 09/04/1999, 10/12/1989 Hepatitis B Vaccines Completed 03/16/2000, 10/29/1999, 09/04/1999 Meningococcal Vaccine Completed 11/19/2006 HPV Vaccines Completed 09/01/2007, 11/2006, 11/19/2006 Varicella Vaccines Completed 12/29/2007, 10/22/1997 Hepatitis A Vaccines Aged Out No long er eligible based on patient's age to complete this topic Men B Vaccine Aged Out No longer elig ible based on patient's age to complete this topic Pneumococcal Vaccine Aged Out No long er eligible based on patient's age to complete this topic
--- OUTSIDE RECORDS SUMMARY | 2024-12-28 07:56 | XMS_ITS | Encounter Summary ---
Author Organization [facility] Address [address] [place] [address] Phone Care Team Providers Care Plasterer Foreman Name Role Phone Chrystal Scott DO Primary Care Provider [phone] Encounter Details Date Type Department Care Team (Late st Contact Info) Description 05/14/2011 Documentation EM Family Medicine [address] [place] [address] Family Medicine, Physician [address] [place], [place] [id number] Social History Tobacco Use Types Packs/Day Years [...] on filedocumented in this encounter Care Teams Plasterer Foreman Relationship Specialty Start Date End Date Chrystal Scott DO [address] [place] [address] PCP - General 12/04/16 10/27/22 documented as of this encounter
[2024-12-28 10:18] LABS: MANUAL DIFF FLAG NO
[2024-12-28 10:20] LABS: Hematocrit 39.9 % (37.0-47.0); Hemoglobin 13.5 g/dl (12.0-16.0); Imm Gran Abs Auto 0.01 X10*3/uL (0.00-0.03); Imm Gran Pct Auto 0.2 % (0.0-0.4); Lymphocytes Absolute Auto 1.7 X10*3/uL (1.2-4.9); Mean Corpuscular HGB Conc 33.8 g/dl (31.0-35.0); Mean Corpuscular Hemoglobin 29.3 pg (27.0-33.0); Mean Corpuscular Volume 86.6 fL (80.0-98.0); NRBC Abs Auto 0.000 X10*3/uL (0.0-0.012); NRBC Pct Auto 0.0 /100WBC (0.0-0.2); Platelet Count 195 X10*3/uL (160-400); Red Blood Count 4.61 X10*6/uL (4.20-5.50); White Blood Count 4.2 X10*3/uL (4.8-10.8)
[2024-12-28 10:38] LABS: Alanine Aminotransferase 26 U/L (0-31); Albumin Level 4.7 g/dL (3.5-5.0); Alkaline Phosphatase 75 U/L (39-117); Anion Gap 10 (12-20); Aspartate Amino Transferase 23 U/L (5-31); Blood Urea Nitrogen 18 mg/dL (9-16); Calcium 9.1 mg/dL (8.4-10.2); Carbon Dioxide 25 mmol/L (22-29); Chloride 108 mmol/L (96-108); Cholesterol 180 mg/dL (<200); Estimated Glomerular Filt Rate > 60; HDL Cholesterol 54 mg/dL (>40); Potassium 4.4 mmol/L (3.3-5.1); Sodium 139 mmol/L (135-145); Total Protein 7.0 g/dL (6.5-8.0); Triglycerides 46 mg/dL (<150)
[2024-12-28 11:09] LABS: Appearance Urine Turbid; Glucose Urine UA Negative (Negative); PH 5.0 (5.0-9.0); Specific Gravity - Urine 1.025 (1.005-1.025); UMIC TRIGGER UACC YES
== END 2024-12-28 07:52 | disposition home or self-care (01) ==
LOC: HO.HMGCLDS 07:51
PROVIDERS: PCP Nurse Practitioner Family; Visit Provider Nurse Practitioner Family
DX: Z00.00 Encounter for general adult medical examination without abnormal findings (principal); E55.9 Vitamin D deficiency, unspecified; Z13.6 Encounter for screening for cardiovascular disorders
CPT/HCPCS: 36415; 80053; 80061; 81001; 81003; 82306; 84443; 85025